=== PATIENT | male | born 1970 | race Caucasian/White ===

== ENCOUNTER 2016-06-07 15:07 | Emergency (ER) | payer BC, OTHER ==
[2016-06-07] MEDS ORDERED: Ondansetron INJ* 2 MG/ML VIAL IV ONE (18:18)
[2016-06-07] MEDS: NS 0.9% 1000 ML* 2,000 ML IV ONE ×2 (18:23→20:14)
[2016-06-07 18:30] LABS: Hematocrit 47 % (42-52); Hemoglobin 15.8 g/dl (14.0-18.0); Mean Corpuscular HGB Conc 34 g/dl (31-36); Mean Corpuscular Hemoglobin 30 pg (27-31); Mean Corpuscular Volume 89 fL (80-94); Mean Platelet Volume 8 um3 (7.4-10.4); Red Blood Count 5.31 10^6/ul (4.0-5.4); Red Cell Distribution Width 13 % (10.5-15); White Blood Count 15.8 10^3/ul (3.5-10.8)
--- NOTE | 2016-06-07 18:38 | ED ---
Abdominal Pain/Male - HPI Summary HPI Summary: Patient presents with vomiting, left flank pain and LLQ pain since 0200 when he awoke with nausea. He has a history of kidney stones and pancreatitis. This does not feel like one of his pancreatic attacks since it is concentrated on the left side, and those are normally midline. Yesterday he felt well. He denies exposure to illness or new foods. He has not urinated or had a bowel movement since yesterday. His abdomen does not feel distended. He denies HURTADO, sore throat, fever, CP or SOB. - History of Current Complaint Chief Complaint: EDAbdPain Stated Complaint: VOMITING Time Seen by Provider: 06/07/16 18:10 Hx Obtained From: Patient, Family/Saw Feeder Onset/Duration: Sudden Onset Timing: Constant Severity Initially: Severe Severity Currently: Moderate Pain Intensity: 6 Location: Discrete At: LLQ, Flank Radiates: Yes Radiates to: Flank - left Character: Sharp, Burning Aggravating Factor(s): Nothing Alleviating Factor(s): Nothing Associated Signs And Symptoms: Positive: Decreased Appetite, Nausea, Vomiting - Allergies/Home Medications Allergies/Adverse Reactions: Allergies Allergy/AdvReac Type Severity Reaction Status Date / Time Ketorolac Tromethamine Allergy Difficulty Verified 06/07/16 15:12 [From Toradol] Breathing Latex Allergy Blisters Verified 06/07/16 15:12 PMH/Surg Hx/FS Hx/Imm Hx GI History: Reports: Other GI Disorders - pancreatitis History: Reports: Hx Kidney Stones - Surgical History Surgery Procedure, Year, and Place: ABD HERNIA REPAIR [facility] Infectious Disease History: No Infectious Disease History: Denies: Traveled Outside the [place] in Last 30 Days - Family History Known Family History: Positive: None - Social History Occupation: Employed Full-time Lives: With Family Alcohol Use: None Alcohol Amount: former drinker Substance Use Type: Reports: None Smoking Status (MU): Current Every Day Smoker Cessation Counseling: Patient Advised to Stop Review of Systems Negative: Fever, Chills Negative: Chest Pain Negative: Shortness Of Breath Positive: Abdominal Pain, Vomiting, Nausea. Negative: Diarrhea Positive: see HPI Negative: Myalgia Negative: Headache, Weakness All Other Systems Reviewed And Are Negative: Yes Physical Exam Triage Information Reviewed: Yes Vital Signs On Initial Exam: Initial Vitals Temp Pulse Resp BP Pulse Ox 98.1 F 120 18 150/88 100 06/07/16 15:12 06/07/16 15:12 06/07/16 15:12 06/07/16 15:12 06/07/16 15:12 Vital Signs Reviewed: Yes Appearance: Positive: Well-Appearing, Well-Nourished, Pain Distress Skin: Positive: Warm, Skin Color Reflects Adequate Perfusion, Dry, Soft Head/Face: Positive: Normal Head/Face Inspection Eyes: Positive: EOMI, LAURIE, Conjunctiva Clear ENT: Positive: Hearing grossly normal Neck: Positive: Supple, Nontender, No Lymphadenopathy Respiratory/Lung Sounds: Positive: Clear to Auscultation, Breath Sounds Present Cardiovascular: Positive: Tachycardia Abdomen Description: Positive: Soft, CVA Tenderness (L). Negative: Nontender - TTP LLQ and LUQ, CVA Tenderness (R), Distended, Guarding Bowel Sounds: Positive: Hypoactive Musculoskeletal: Positive: Strength/ROM Intact. Negative: Edema Left, Edema Right Neurological: Positive: Sensory/Motor Intact, Alert, Oriented to Person Place, Time, NV Bundle Intact Distally, Normal Gait Psychiatric: Positive: Affect/Mood Appropriate AVPU Assessment: Alert Diagnostics - Vital Signs Vital Signs Temp Pulse Resp BP Pulse Ox 06/07/16 18:12 100.1 F 06/07/16 15:12 98.1 F 120 18 150/88 100 - Laboratory Result Diagrams: 06/07/16 18:10 06/07/16 18:10 Lab Statement: Any lab studies that have been ordered have been reviewed, and results considered in the medical decision making process. - CT No standard instances CT Interpretation: No Acute Changes CT Interpretation Completed By: Radiologist Re-Evaluation - Re-Evaluation First Eval Re-Evaluation Time: 19:45 Change: Unchanged - Patient continues to feel nauseous. Second Eval Re-Evaluation Time: 21:00 Change: Improved Comment: Patient is able to take oral fluids and feels better. Abdominal Pain Fem Course/Dx - Diagnoses Differential Diagnosis/HQI/PQRI: Abdominal Aortic Aneurysm, ACS, Appendicitis, Bowel Obstruction, Constipation, Diverticulitis, Gall Bladder Disease, Hepatitis , Pancreatitis, Prostatitis, Ureteral Stone Provider Diagnoses: Abdominal pain, Vomiting Discharge - Discharge Plan Condition: Stable Disposition: HOME Prescriptions: Ondansetron ODT TAB* [Zofran Odt TAB*] 4 mg PO Q6H PRN #10 tab.odt PRN Reason: Nausea Patient Education Materials: Abdominal Pain (ED) Referrals: Pamela Soares MD [Primary Care Provider] - Additional Instructions: Please use the anti-nausea medication as needed so you can stay hydrated. Follow -up with your primary care provider if your symptom have not improved in the next 2-3 days. Return to the emergency department if your symptoms worsen.
--- NOTE | 2016-06-07 18:50 | RAD ---
Indication: LEFT flank pain. History of renal stones. Comparison: December 31, 2015 CT. Technique: LEFT renal ultrasound. Report: 10.6 x 5.6 x 4.8 cm LEFT kidney is normal in morphology. No conspicuous stones or hydronephrosis. No focal renal lesions evident. Negative for perinephric fluid. IMPRESSION: Negative LEFT renal ultrasound.
[2016-06-07 19:05] LABS: Albumin 4.5 g/dL (3.2-5.2); BUN/Creatinine Ratio 17.9 (8-20); C Reactive Protein 1.82 mg/L (< 5.00); EGFR African American 127.7 (>60); EGFR Non-African American 99.3 (>60); Globulin 2.7 g/dL (2-4); Potassium 3.8 mmol/L (3.5-5.0); Total Bilirubin 0.5 mg/dL (0.2-1.0); Total Protein 7.2 g/dL (6.4-8.9)
[2016-06-07] MEDS ORDERED: Iohexol 300* (CONTRAST) 10 ML SDV IV ONE (19:31)
[2016-06-07] MEDS ORDERED: Metoclopramide IV* 5 MG/ML 2 ML VIAL IV ONE (19:54)
--- NOTE | 2016-06-07 20:40 | RAD ---
INDICATION: LEFT lower quadrant and LEFT flank pain. Fever, vomiting. Post abdominal hernia repair. COMPARISON: LEFT renal ultrasound of the same date and December 31, 2015 CT. TECHNIQUE: Multidetector CT images were obtained from the lung bases to the ischial tuberosities with 91 mL Omnipaque 300 IV and oral contrast. Multiplanar reformation. REPORT: Minimal dependent basilar atelectasis. The liver, gallbladder, pancreas, and spleen are unremarkable. Negative for CT abnormality of the upper GI, small bowel, or infra cecal appendix. Mild diverticulosis of the sigmoid colon without findings of diverticulitis. Negative for ascites, free air, hernias. Bilateral inguinal region surgical clips. Normal adrenal glands. Unremarkable kidneys with symmetric nephrograms and pyelograms. No conspicuous renal stones or hydronephrosis. Negative for focal renal lesions or perinephric edema. Unremarkable ureters and urinary bladder. Unremarkable prostate and seminal vesicles. Negative for lymphadenopathy. Atherosclerotic plaque of normal diameter abdominal aorta and iliac arteries. Normal opacification of the central visceral arteries. Physiologic distention of the IVC. Negative for suspicious osseous lesions. IMPRESSION: 1. No evidence for obstructive uropathy. 2. No acute abdominal pelvic pathologic process evident. Normal appendix documented. 3. Peripheral vascular disease. Negative for aneurysm of the abdominal aorta.
[2016-06-07 21:31] LABS: Urine Bacteria Absent (Absent); Urine Bilirubin Negative (Negative); Urine Glucose Negative (Negative); Urine Nitrite Negative (Negative)
[2016-06-07] MEDS ORDERED: Ondansetron ODT TAB* 4 MG PO ONE (21:52)
[2016-06-07 22:09] VITALS: BP 130/80
== END 2016-06-07 22:02 | disposition home or self-care (01) ==
LOC: ED 15:07
DX: R10.32 Left lower quadrant pain (principal); R11.10 Vomiting, unspecified; F17.210 Nicotine dependence, cigarettes, uncomplicated; Z88.8 Allergy status to other drugs, medicaments and biological substances; I73.9 Peripheral vascular disease, unspecified
CPT/HCPCS: 36415; 74177; 76775; 80053; 81003; 81015; 82150; 83605; 83690; 85025; 86140; 96374; 96375; 99283; A9270-GY; J2405; J2765; Q9967